=== PATIENT | female | born 2000 ===

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

== ENCOUNTER 2019-03-09 14:30 | Emergency (ER) | payer MEDICAID ==
[2019-03-09 14:49] VITALS: BP 114/74; PULSE 71; RESP 14; TEMP 98.7; O2SAT 98
--- NOTE | 2019-03-09 15:40 | ED PDOC ---
HPI: Back Time Seen by Provider: 03/09/19 14:52 Chief Complaint (Nursing): Back Pain Chief Complaint (Provider): BACK PAIN History Per: Patient History/Exam Limitations: no limitations Onset/Duration Of Symptoms: Days, Intermittent Episodes Current Symptoms Are (Timing): Still Present Quality Of Discomfort: "Pain" Severity: Mild Previous Symptoms: Back Pain, Prior Injury Associated Symptoms: None Exacerbating Factor(s): Movement, Sitting Additional History Per: Patient Additional Complaint(s): 18 Y/O FEMALE WITH PRIOR HX OF BACK INJURY TWO YEARS AGO AFTER FALL, PRESENTS TO THE ED C/O MID TO LOWER BACK PAIN RADIATING TO BILAT SIDES FOR TWO YEARS INTERMITTENTLY WORSE IN THE LAST 2 DAYS. SHE DENIES INJURY, REPORTS SHE WAS SITTING WHEN PAIN STARTED. PAIN IS WORSE WITH MOVEMENT IN WHEN LAYING DOWN. SHE REPORTS SHE HAD "BACK PAIN" MEDICATION THAT WAS GIVEN TO HER TWO YEARS AGO BUT THEY DO NOT SEEM TO HELP. SHE ALSO TOOK ADVIL 2 TABS LASTNIGHT WITH MINIMAL RELIEF. PATIENT STATES SHE DOES WORK. DENIES URINARY COMPLAINTS. SHE IS ABLE TO CONTROL VOIDING AND BOWEL HABITS. DENIES NUMBNESS TO LOWER EXTREMITIES. SHE STATES SHE WAS SUPPOSE TO GO FOR PHYSICAL THERAPY FOR HER BACK BUT NEVER WENT FOR IT. Past Medical History Reviewed: Historical Data, Nursing Documentation, Vital Signs Vital Signs: Last Vital Signs Temp 98.7 F 03/09/19 14:47 Pulse 71 03/09/19 14:47 Resp 14 03/09/19 14:47 BP 114/74 03/09/19 14:47 Pulse Ox 98 03/09/19 14:47 Primary Care Provider: FAMILY PROVIDER,NO - Medical History PMH: Migraine Denies: Diabetes, Hepatitis, HIV, HTN, Seizures, Sexually Transmitted Disease - Surgical History Surgical History: No Surg Hx - Family History Family History: States: Unknown Family Hx - Living Arrangements Living Arrangements: With Family - Social History Alcohol: None Drugs: Denies - Immunization History Hx Tetanus Toxoid Vaccination: No Hx Influenza Vaccination: No Hx Pneumococcal Vaccination: No - Home Medications Home Medications: Ambulatory Orders Medication Instructions Recorded Ibuprofen [Motrin] 600 mg PO Q6 #30 tab 10/22/14 Nitrofurantoin Macrocrystals 100 mg PO BID #14 cap 11/07/16 [Macrobid] Fluticasone Nasal [Flonase] 1 actuation NS BID #1 bottle 01/08/18 Ibuprofen [Motrin Tab] 1 tab PO Q6 PRN #20 tab 01/08/18 Promethazine DM [Phenergan DM 5 ml PO Q6 PRN #1 bottle 01/08/18 Syrup] Nitrofurantoin Macrocrystals 100 mg PO BID #13 cap 08/13/18 [Macrobid] Cyclobenzaprine [Cyclobenzaprine 10 mg PO Q8H PRN #15 tab 03/09/19 HCl] Ibuprofen [Motrin] 600 mg PO Q8H PRN #30 tab 03/09/19 - Allergies Allergies/Adverse Reactions: Allergies Allergy/AdvReac Type Severity Reaction Status Date / Time No Known Allergies Allergy Verified 03/09/19 14:47 Review of Systems ROS Statement: Except As Marked, All Systems Reviewed And Found Negative Constitutional: Negative for: Fever, Chills, Sweats, Weakness, Malaise ENT: Negative for: Throat Pain, Throat Swelling Cardiovascular: Negative for: Chest Pain, Palpitations, Light Headedness Respiratory: Negative for: Cough, Shortness of Breath, SOB with Exertion, Wheezing Gastrointestinal: Negative for: Nausea, Vomiting, Abdominal Pain, Diarrhea, Constipation Genitourinary Female: Negative for: Dysuria, Hematuria, Pelvic Pain Musculoskeletal: Positive for: Back Pain. Negative for: Neck Pain, Shoulder Pain, Arm Pain, Hand Pain, Leg Pain, Foot Pain, Other Neurological: Negative for: Weakness, Numbness, Incoordination, Dizziness Physical Exam - Reviewed Nursing Documentation Reviewed: Yes Vital Signs Reviewed: Yes - Physical Exam Appears: Positive for: Well, Non-toxic, No Acute Distress Head Exam: Positive for: ATRAUMATIC, NORMAL INSPECTION, NORMOCEPHALIC Skin: Positive for: Normal Color, Warm, DRY Eye Exam: Positive for: EOMI, Normal appearance, PERRL ENT: Positive for: Normal ENT Inspection Neck: Positive for: Normal, Painless ROM, Supple Cardiovascular/Chest: Positive for: Regular Rate, Rhythm, Chest Non Tender Respiratory: Positive for: CNT, Normal Breath Sounds Pulses-Radial (L): 2+ Pulses-Radial (R): 2+ Gastrointestinal/Abdominal: Positive for: Normal Exam, Soft. Negative for: Tenderness Back: Positive for: Normal Inspection, Vertebral Tenderness (LOWER BACK AND MUSCULAR TENDERNESS ), Decreased ROM, Muscle Spasm. Negative for: L CVA Tenderness, R CVA Tenderness Extremity: Positive for: Normal ROM. Negative for: Tenderness, Pedal Edema, Calf Tenderness, Deformity, Swelling Neurological/Psych: Positive for: Awake, Alert, Normal Tone, Oriented - Laboratory Results Urine POC: Negative Urine dip results: Positive for: Bilirubin (small). Negative for: Leukocyte Esterase, Blood, Nitrate, Ketones, Glucose, Protein - ECG O2 Sat by Pulse Oximetry: 98 Medical Decision Making Medical Decision Making: --UPREG --UDIP --TORADOL --FLEXERIL REASSESS 16:30 Patient states pain improved. Patient stable for D/C home. Rx given for Motrin and Flexeril, advised caution with flexeril, advised no driving or operating heavy machinery. Encouraged patient to follow-up with PMD, consider Physical Therapy if back pain persists. Patient states understanding and agrees with plan. Return to ED precautions given. Disposition - Clinical Impression Clinical Impression: Low back pain - Patient ED Disposition Is Patient to be Admitted: No Counseled Patient/Family Regarding: Diagnosis - Disposition Disposition: Routine/Home Disposition Time: 16:30 Condition: IMPROVED Prescriptions: Cyclobenzaprine [Cyclobenzaprine HCl] 10 mg PO Q8H PRN #15 tab PRN Reason: Muscle Spasm Ibuprofen [Motrin] 600 mg PO Q8H PRN #30 tab PRN Reason: Pain, Moderate (4-7) Instructions: Low Back Pain in Adults Print Language: ALBANIAN - POA Present On Arrival: None
== END 2019-03-09 16:50 | disposition home or self-care (01) ==
LOC: H.ER 14:30
DX: M54.5 Low back pain (principal)
CPT/HCPCS: 81025; 96372; 99283; J1885